=== PATIENT | female | born 1970 | race Caucasian/White ===

== ENCOUNTER 2017-07-31 15:08 | Outpatient (CLI) | payer BC ==
--- NOTE | 2017-08-01 15:34 | Mammography Report ---
DIGITAL SCREENING MAMMOGRAM: 07/31/2017 CLINICAL INDICATION: A 46-year-old with history of late childbearing, family history of breast cancer, for baseline. TECHNIQUE: Routine CC and MLO projections were obtained of the breasts. FINDINGS: The breasts demonstrate heterogeneously dense fibroglandular parenchyma bilaterally. In the left lower central breast, there is a possible obscured nodule. Further evaluation with spot compression views and possible ultrasound is recommended. No mammographically suspicious findings are appreciated in the right breast. IMPRESSION: INCOMPLETE EXAMINATION. RECOMMENDATION: ADDITIONAL EVALUATION OF THE LEFT BREAST ABOVE. BIRADS CATEGORY 0-INCOMPLETE. STANDARD QUALIFYING STATEMENTS: 1. This examination was reviewed with the aid of Computer-Aided Detection (CAD). 2. A negative or benign imaging report should not delay biopsy if clinically suspicious findings are present. Consider surgical consultation if warranted. More than 5% of cancers are not identified by imaging. 3. Dense breasts may obscure an underlying neoplasm. TD: 08/01/2017 15:32
== END 2017-07-31 15:09 | disposition home or self-care (01) ==
LOC: DI 15:08
PROVIDERS: ATTEND Registered Nurse
DX: Z12.31 Encounter for screening mammogram for malignant neoplasm of breast (principal); R92.8 Other abnormal and inconclusive findings on diagnostic imaging of breast; Z80.3 Family history of malignant neoplasm of breast
CPT/HCPCS: 77067

== ENCOUNTER 2017-07-31 15:16 | Outpatient (CLI) | payer BC ==
--- NOTE | 2017-08-01 11:18 | Ultrasound Report ---
PELVIC ULTRASOUND: 07/31/2017 CLINICAL INDICATION: Pelvic pain. TECHNIQUE: Transabdominal pelvic ultrasound performed for global evaluation. Transvaginal pelvic ultrasound performed for detailed evaluation. Real-time scanning performed and static images obtained. FINDINGS: The uterus is anteverted, measuring 12.5 x 6.0 x 5.8 cm. The endometrium measures 9 mm. The myometrium is heterogeneous, but no discrete leiomyoma is appreciated. The ovaries are unremarkable, with the right measuring 3.1 x 2.2 x 2.2 cm, and the left measuring 2.8 x 2.2 x 1.6 cm. No free fluid is present. IMPRESSION: HETEROGENEOUS MYOMETRIUM, BUT NO DISCRETE LEIOMYOMA IS IDENTIFIED ON TODAY'S STUDY. NORMAL OVARIES. TD: 08/01/2017 11:16 [email or web address]
== END 2017-07-31 15:17 | disposition home or self-care (01) ==
LOC: DI 15:16
PROVIDERS: ATTEND Registered Nurse
DX: R10.2 Pelvic and perineal pain (principal)
CPT/HCPCS: 76830; 76856

== ENCOUNTER 2017-08-27 08:43 | Outpatient (CLI) | payer BC ==
--- NOTE | 2017-08-27 15:35 | Mammography Report ---
DIAGNOSTIC LEFT MAMMOGRAM: 08/27/2017 CLINICAL INDICATION: Possible obscured nodule on screening. TECHNIQUE: Left true lateral and spot compression views. COMPARISON: 07/31/2017. FINDINGS: The left breast again demonstrates heterogeneously dense fibroglandular parenchyma. The density in question, in the left lower central breast, dissipates evenly on additional compression. No underlying mass lesion or architectural distortion is identified. IMPRESSION: NEGATIVE EXAMINATION. RECOMMENDATION: Routine annual screening unless otherwise clinically indicated. BIRADS CATEGORY 1-NEGATIVE. STANDARD QUALIFYING STATEMENTS: 1. This examination was reviewed with the aid of Computer-Aided Detection (CAD). 2. A negative or benign imaging report should not delay biopsy if clinically suspicious findings are present. Consider surgical consultation if warranted. More than 5% of cancers are not identified by imaging. 3. Dense breasts may obscure an underlying neoplasm. TD: 08/27/2017 15:34
== END 2017-08-27 08:44 | disposition home or self-care (01) ==
LOC: DI 08:43
PROVIDERS: ATTEND Registered Nurse
DX: R92.8 Other abnormal and inconclusive findings on diagnostic imaging of breast (principal)